=== PATIENT | male | born 1940 | race African-American/Black ===

== ENCOUNTER 2016-07-24 09:03 | Emergency (ER) | payer MEDICARE, MEDICAID ==
[~2016-07-24] VITALS: Ht 175.3 cm; Wt 80.0 kg
[2016-07-24] MEDS ORDERED: IPRATROPIUM BROMIDE (0.02%) 0.5MG/2.5ML NEB HHN STA (09:20)
[2016-07-24] MEDS ORDERED: ALBUTEROL (0.083%) 2.5MG/3ML NEB HHN STA (09:20)
[2016-07-24] MEDS ORDERED: PREDNISONE 20MG TABLET PO STA (09:20)
[2016-07-24] MEDS ORDERED: ALBUTEROL (0.5%) 2.5MG/0.5ML NEB HHN ONE (10:03)
[2016-07-24 12:46] VITALS: BP 136/65
== END 2016-07-24 12:47 | disposition home or self-care (01) ==
LOC: ER 09:35
DX: J02.9 Acute pharyngitis, unspecified (principal); R06.82 Tachypnea, not elsewhere classified; J44.9 Chronic obstructive pulmonary disease, unspecified; I50.9 Heart failure, unspecified; E11.9 Type 2 diabetes mellitus without complications; I10 Essential (primary) hypertension
CPT/HCPCS: 94640; 99283; J7512; J7611

== ENCOUNTER 2020-11-18 22:17 | Emergency (ER) | payer MEDICARE, MEDICAID ==
[~2020-11-18] VITALS: Ht 170.2 cm; Wt 77.0 kg
[2020-11-18] MEDS ORDERED: IBUPROFEN 600MG TABLET PO ONE (22:45)
[2020-11-19] MEDS ORDERED: IBUP-2029 MT (01:17)
[2020-11-19 01:40] VITALS: BP 130/64
== END 2020-11-19 01:45 | disposition home or self-care (01) ==
LOC: ER 22:17
DX: M79.18 Myalgia, other site (principal); Z91.81 History of falling; I49.8 Other specified cardiac arrhythmias
CPT/HCPCS: 93005; 99283